=== PATIENT | female | born 1975 | race Caucasian/White ===

== ENCOUNTER 2020-04-30 14:18 | Outpatient (REF) | payer OTHER, SELFPAY ==
--- NOTE | 2020-04-30 | MM_ITS ---
EXAMINATION: MM SCREENING DIGITAL BREAST TOMOSYNTHESIS, RIGHT CLINICAL INFORMATION: Left mastectomy, reconstruction, and implant. Prior surgery 2014. Due for yearly exam. COMPARISON: Mammography: 09/01/2018, 08/26/2017, 02/16/2017 TECHNIQUE: Digital mammography is performed in craniocaudal and mediolateral oblique views along with computer-aided detection (CAD). Digital breast tomosynthesis is performed in implant-displaced craniocaudal and implant-displaced mediolateral oblique views along with computer-aided detection (CAD). Synthesized 2D images are generated from the tomosynthesis. FINDINGS: There are scattered areas of fibroglandular density (ACR BI-RADS breast composition Category b). Implant contours are smooth and similar to prior studies. There is no interval mass or architectural abnormality. No developing density. No abnormal calcifications. The skin contours are smooth. MM/MM tomosynthesis screen imp RT IMPRESSION: No mammographic evidence of malignancy. ASSESSMENT: BI-RADS 1: Negative RECOMMENDATION: Routine annual mammography screening. This patient's information was entered into a reminder system with a target due date for their next mammogram.
== END 2020-04-30 14:19 | disposition home or self-care (01) ==
LOC: HO.MAMMO 14:18
PROVIDERS: Visit Provider Physician Assistant
DX: Z12.31 Encounter for screening mammogram for malignant neoplasm of breast (principal); Z90.12 Acquired absence of left breast and nipple; Z42.1 Encounter for breast reconstruction following mastectomy; Z98.82 Breast implant status
CPT/HCPCS: 77067